=== PATIENT | male | born 2000 | race African-American/Black ===

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

== ENCOUNTER 2022-11-08 01:11 | Emergency (ER) | payer OTHER | END 2022-11-08 05:58 | disposition home or self-care (01) | LOC: ERS 01:11 | DX: K64.8 Other hemorrhoids (principal) | CPT/HCPCS: 99282 ==

== ENCOUNTER 2023-07-01 08:46 | Emergency (ER) | payer OTHER, SELFPAY ==
[2023-07-01] MEDS ORDERED: Acetaminophen 500 MG TAB ONE (09:14)
[2023-07-01] MEDS ORDERED: Ibuprofen 200 MG TAB ONE (09:14)
== END 2023-07-01 09:40 | disposition home or self-care (01) ==
LOC: ERS 08:46
DX: B08.4 Enteroviral vesicular stomatitis with exanthem (principal); F17.290 Nicotine dependence, other tobacco product, uncomplicated
CPT/HCPCS: 99282

== ENCOUNTER 2025-04-17 06:49 | Emergency (ER) | payer SELFPAY ==
[2025-04-17] MEDS ORDERED: predniSONE 20 MG TAB ONE (08:30)
[2025-04-17] MEDS ORDERED: Albuterol 200 PUFF (6.7GM INHALER) ONE (08:31)
== END 2025-04-17 08:46 | disposition home or self-care (01) ==
LOC: ERS 06:49
DX: J45.901 Unspecified asthma with (acute) exacerbation (principal); F17.290 Nicotine dependence, other tobacco product, uncomplicated
CPT/HCPCS: 71046; 93005; J7512; J7620